=== PATIENT | male | born 1955 | race Caucasian/White ===

== ENCOUNTER 2020-05-31 00:30 | Emergency (ER) | payer MEDICARE ==
[2020-05-31] MEDS ORDERED: SODIUM CHLORIDE 0.9% 1000 ML 1,000 ML IV ONE (00:51)
[2020-05-31] MEDS ORDERED: ONDANSETRON 4 MG/2 ML INJ ONE (00:51)
[2020-05-31] MEDS ORDERED: ONDANSETRON 4 MG/2 ML INJ IV ONE (00:51)
--- NOTE | 2020-05-31 01:04 | Emergency Department Report ---
Vomiting/Diarrhea - [facility] Chief Complaint: Nausea/Vomiting/Diarrhea Stated Complaint: NAUSEA,VOMITING Time Seen by Provider: 05/31/20 00:51 Duration: Today Severity: severe Nausea/Vomiting Severity: Severe Diarrhea Severity: None Symptoms: Yes Able to Tolerate Fluids, Yes Recent Unusual Foods, No Watery Diarrhea, No Bloody diarrhea, No Fever, No Recent Untreated Water, No Recent use of Antibiotics, No Family w/ Similar Symptoms, No Contacts w/ Similar Symptoms, No Rash, No Hematuria, No Recent URI Symptoms Other History: Patient is a 64-year-old male the presents emergency room with complaints of nausea and vomiting x30 minutes. Patient states that his vomiting is severe. Patient states he had some new food. Patient states he was given Zofran and feels much better. Patient states the Zofran has helped his nausea and vomiting resolved. Patient denies fever and chills. Patient denies chest pain. Patient denies abdominal pain. Patient denies shortness of breath. Patient denies recent travel. Patient denies recent international travel. Patient denies exposure to the novel coronavirus. Patient denies sick contacts. Patient denies fever and chills. Patient denies cough. Patient denies diarrhea. Patient denies coming in contact with anybody with symptoms of the novel coronavirus. ED Review of Systems ROS: Stated complaint: NAUSEA,VOMITING Other details as noted in HPI Constitutional: denies: chills, fever Eyes: denies: eye pain, eye discharge, vision change ENT: denies: ear pain, throat pain Respiratory: denies: cough, shortness of breath, wheezing Cardiovascular: denies: chest pain, palpitations Endocrine: no symptoms reported Gastrointestinal: nausea, vomiting. denies: abdominal pain, diarrhea, constipation, hematemesis, melena, hematochezia Genitourinary: denies: urgency, dysuria Musculoskeletal: denies: back pain, joint swelling, arthralgia Skin: denies: rash, lesions Neurological: denies: headache, weakness, paresthesias Psychiatric: denies: anxiety, depression Hematological/Lymphatic: denies: easy bleeding, easy bruising ED Past Medical Hx - Past Medical History Previous Medical History?: Yes Hx Hypertension: Yes - Surgical History Past Surgical History?: Yes Additional Surgical History: Back surgery 2009 - Family History Family history: no significant - Social History Smoking Status: Never Smoker Substance Use Type: None - Medications Home Medications: Home Medications Medication Instructions Recorded Confirmed Last Taken Type Ondansetron [Zofran Odt] 4 mg PO Q6HR PRN #20 tab.ivorydis 05/31/20 Unknown Rx Vomiting Diarrhea Exam - Exam General: Vital signs noted. No distress. Alert and acting appropriately. HEENT: Yes Moist Mucous Membranes, No Pharyngeal Erythema, No Pharyngeal Exudates, No Rhinorrhea, No Conjuctival Injection, No Frontal Tenderness, No Maxillary Tenderness Neck: No Adenopathy, No Rigidity Lungs: Yes Clear Lung Sounds, Yes Good Air Exchange, No Wheezes, No Stridor, No Cough, No Nasal Flaring, No Retractions, No Use of Accessory Muscles Heart exam: Regular: Yes, Murmur: No, Tachycardia: No Abdomen: Tenderness: No, Peritoneal Signs: No, Distention: No, Hyperactive Bowel sounds: No Skin exam: Rash: No, Edema: No, Normal turgor: Yes Neurologic: Alert and oriented, no deficits. Musculoskeletal: Unremarkable. ED Course - Reevaluation(s) Reevaluation #1: Patient on the cafeteria monitor. Patient has no more active vomiting since the nurse gave the patient Zofran. Patient is receiving fluids. We will monitor the patient and then prepared the patient for discharge after labs reviewed 05/31/20 01:06 Reevaluation #2: Patient states he is feeling much better. Patient denies nausea and vomiting. 05/31/20 02:08 Reevaluation #3: I discussed all results and clinical findings with patient. I discussed plan of care with patient. Patient agrees with plan of care. Patient is stable for discharge. Patient will be discharged home. Patient given discharge ins tructions. Patient voiced understanding of discharge instructions. 05/31/20 03:41 ED Medical Decision Making - Lab Data Result diagrams: 05/31/20 02:07 05/31/20 00:58 - Medical Decision Making Patient is a 64-year-old male that presents emergency room with complaints of nausea and vomiting. Patient denies abdominal pain. Patient given a dose of Zofran after initial evaluation. Patient responded well. Patient's vomiting stopped immediately. Patient tolerated p.o. intake. Patient's vital signs stable. Patient given fluids in the ER. Patient's labs are essentially unremarkable. Patient stable for discharge. Patient discharged home. - Differential Diagnosis Gastroenteritis, food toxicity, nausea, vomiting. Critical care attestation.: If time is entered above; I have spent that time in minutes in the direct care of this critically ill patient, excluding procedure time. ED Disposition Clinical Impression: Gastroenteritis Nausea & vomiting Qualifiers: Vomiting type: unspecified Vomiting Intractability: non-intractable Qualified Code(s): R11.2 - Nausea with vomiting, unspecified Disposition: DC-01 TO HOME OR SELFCARE Is pt being admited?: No Does the pt Need Aspirin: No Condition: Stable Instructions: Gastroenteritis (ED), Acute Nausea and Vomiting (ED), Food Poisoning (ED) Additional Instructions: Patient to eat a patient to follow-up with primary care in 2 to 3 days. Patient to follow-up with gastroenterology in 2 to 3 days. Patient to rest. Patient to eat a brat diet. Patient to increase water. Patient to take Tylenol or ibuprofen as needed for pain. Patient to take meds as directed. Patient to return to the ER if condition worsens, changes or new symptoms arise. Prescriptions: Ondansetron [Zofran Odt] 4 mg PO Q6HR PRN #20 tab.rapdis PRN Reason: Nausea And Vomiting Referrals: PRIMARY CARE, [Primary Care Provider] - 2-3 Days Time of Disposition: 03:40
[2020-05-31 01:47] LABS: Alanine Aminotransferase 34 units/L (7-56); Albumin 3.8 g/dL (3.9-5); BUN/Creatinine Ratio 15; Blood Urea Nitrogen 18 mg/dL (9-20); Calcium 8.5 mg/dL (8.4-10.2); Hemolysis Index 119
[2020-05-31 03:25] LABS: Hematocrit 34.6 % (35.5-45.6); Hemoglobin 11.7 gm/dl (11.8-15.2); Mean Corpuscular HGB Conc 34 % (32-34); Mean Corpuscular Volume 78 fl (84-94); Platelet Count 226 K/mm3 (140-440); Red Blood Count 4.42 M/mm3 (3.65-5.03); Red Cell Distribution Width 14.3 % (13.2-15.2)
[2020-05-31 03:49] VITALS: BP 109/60
== END 2020-05-31 04:00 | disposition home or self-care (01) ==
LOC: ED 00:30
DX: K21.9 Gastro-esophageal reflux disease without esophagitis (principal); I10 Essential (primary) hypertension; Z98.890 Other specified postprocedural states
CPT/HCPCS: 36415; 80053; 85025; 96361; 96374; 99284; J2405; J7030